=== PATIENT | male | born 2000 | race Caucasian/White ===

== ENCOUNTER 2020-10-29 12:59 | Emergency (ER) | payer OTHER, SELFPAY ==
--- NOTE | 2020-10-29 13:17 | ED.SKABFB ---
HPI - Skin/Abscess/Foreign Bdy General Chief complaint: Skin/Abscess/Foreign Body Stated complaint: lump on chest Time Seen by Provider: 10/29/20 13:18 Source: patient and RN notes reviewed Mode of arrival: ambulatory Limitations: no limitations History of Present Illness HPI narrative: 20year old male who [facility] with complaints of having painful lump to his left upper abdomen and lower chest area for the past 2 weeks. Patient states that he had this lump type area about 6mos to 1 year ago but went away. Patient states that this painful lump area reappeared after he started lifting weight in the gym 2 weeks ago. Patient states he hadn't lifted weight for several months and decided to get back into lifting. Patient admits to lifting over a 100 pound starting off initially and then pain and lump like area appeared. MD complaint: other (painful lump area lower chest upper abdomen left) Onset (ago): week(s) (2) Tetanus up to date: yes Severity: moderate Severity scale (1-10): 4 Quality: aching Pain Consistency: intermittent Relieving factors: rest Exacerbating factors: movement and other (palpation) Context: other (lifting weights) Treatments prior to arrival: none Related Data Home Medications Medication Instructions Recorded Confirmed No Home Medications 10/29/20 10/29/20 Allergies Allergy/AdvReac Type Severity Reaction Status Date / Time No Known Allergies Allergy Verified 10/29/20 13:13 Review of Systems Review of Systems: Narrative: CONSTITUTIONAL: Denies fever, chills, or sweats. EYES: Denies visual changes, redness, or discharge. ENT: Denies rhinorrhea, congestion, sore throat, or otalgia. CARDIOVASCULAR: Denies chest pain, palpitations, or edema. RESPIRATORY: Denies cough or dyspnea. GASTROINTESTINAL: Positive for area of tenderness to upper left abdomen lower chest area which occurred after lifting weights, no nausea, vomiting, or diarrhea. GENITOURINARY: Denies dysuria or hematuria. SKIN: Denies rash or itching. MUSCULOSKELETAL: Denies back pain, joint pain, or myalgia. NEUROLOGIC: Denies headache, numbness, or weakness. PSYCHIATRIC:Positive for anxiety or depression. All systems reviewed & are unremarkable except as noted in HPI and below PMFSH Past Medical History Medical History (Updated 10/30/20 @ 14:53 by Peg Davila NP) Anxiety Surgical History Surgical History (Updated 10/30/20 @ 14:47 by Peg Davila NP) No history of previous surgery Family History Family History (Updated 10/29/20 @ 15:04 by Peg Davila NP) Mother Anxiety Father Hypertension Father No problems noted. Grandparent Diabetes mellitus Hypertension Alzheimer's dementia Social History Social History (Updated 10/29/20 @ 15:01 by Peg Davila NP) Tobacco type: e-cigarettes/vaping Alcohol intake: never Substance use: never Living arrangements: with family Gender identity (if verbalized by the patient): Male Comments At time of signature, agree with nursing past medical, surgical, social and family history. There is no relevant family history pertinent to the presenting complaint Exam Narrative: Exam Narrative: GENERAL: Well-appearing, well-nourished,obese and in no acute distress. HEAD: Normocephalic, atraumatic. EYES: PERRLA and EOMI. ENT: Nares clear, no rhinorrhea or epistaxis. Mucous membranes moist. NECK: Supple.no lymphadenopathy CHEST: Clear to auscultation. No respiratory distress.[id number] on room air HEART: Regular rate and rhythm. No murmur heard. Normal peripheral pulses. ABDOMEN: Soft, tenderness on palpation to left upper abdomen lower chest area, increases with movement, no palpable mass noted, nondistended, normal active bowel sounds. EXTREMITIES: Normal range of motion. No edema. SKIN: Warm, dry, no rash. NEURO: No focal deficits. Alert and oriented x3, very anxious states that ongoing anxiety issues. Course Vital Signs Vital signs:
[2020-10-29 13:18] VITALS: BP 148/94; PULSE 94; RESP 16; TEMP 36.4; O2SAT 98
== END 2020-10-29 13:40 | disposition home or self-care (01) ==
PROVIDERS: Emergency Provider Registered Nurse
DX: S39.011A Strain of muscle, fascia and tendon of abdomen, initial encounter (principal); X50.9XXA Other and unspecified overexertion or strenuous movements or postures, initial encounter; F17.200 Nicotine dependence, unspecified, uncomplicated
CPT/HCPCS: 99211; 99212; G0463